=== PATIENT | female | born 1995 ===

== ENCOUNTER → 2017-12-16 19:03 | Outpatient (REF) | payer BC, SELFPAY ==
[2017-12-16 19:23] LABS: Add Manual Diff / Slide Review NO; Basophils Percent Auto 0.5 % (0-2); Eosinophils Percent Auto 0.8 % (2-4); Hematocrit 41.2 % (36-46); Lymphocytes Percent Auto 23.1 % (25-40); Mean Corpuscular HGB Conc 33.9 % (30-36); Mean Corpuscular Hemoglobin 30.1 PG (26-34); Mean Corpuscular Volume 88.8 fL (80-100); Monocytes Percent Auto 7.3 % (3-14); Neutrophils Absolute Auto 4100 /uL (3000-5900); Neutrophils Percent Auto 68.3 % (50-75); Platelet Count 238 X10^3/uL (150-400); Red Blood Cell Count 4.64 X10^6/uL (4.0-5.2)
[2017-12-16 19:33] LABS: Alanine Aminotransferase 38 IU/L (9-52); Albumin 4.3 g/dL (3.5-5.0); Albumin Globulin Ratio 1.7 (1.0-2.8); Alkaline Phosphatase 83 U/L (38-126); Aspartate Aminotransferase 63 IU/L (14-36); Bilirubin Total 0.8 mg/dL (0.2-1.3); Bilirubin Unconjugated 0.5 mg/dL (0.0-1.1); Cholesterol 159 mg/dL (140-199); Globulin 2.6 g/dL (1.7-4.1); HDL Cholesterol 57 mg/dL (40-60); HEMOLYSIS < 15 (0-50); LDL Cholesterol Calculated 88 mg/dL (<100); Total Protein 6.9 g/dL (6.3-8.2); Triglycerides 68 mg/dL (35-150)
[2017-12-16 19:50] LABS: HCG Quantitative /Beta subunit < 2.39 mIU/mL
== END ==
LOC: LAB 19:03
PROVIDERS: Visit Provider Physician Assistant
DX: Z79.899 Other long term (current) drug therapy (principal); L70.0 Acne vulgaris
CPT/HCPCS: 36415; 80061; 80076; 84702; 85025

== ENCOUNTER → 2018-01-05 18:59 | Outpatient (REF) | payer BC, SELFPAY ==
[2018-01-05 19:13] LABS: Pregnancy Test Urine Negative (Negative)
== END ==
LOC: LAB 18:59
PROVIDERS: Visit Provider Physician Assistant
DX: Z79.899 Other long term (current) drug therapy (principal)
CPT/HCPCS: 81025

== ENCOUNTER → 2018-02-02 19:08 | Outpatient (REF) | payer OTHER, SELFPAY ==
[2018-02-02 19:42] LABS: Add Manual Diff / Slide Review NO; Basophils Percent Auto 0.4 % (0-2); Eosinophils Percent Auto 0.1 % (2-4); Hematocrit 43.2 % (36-46); Hemoglobin 14.5 g/dL (12.0-16.0); Lymphocytes Percent Auto 14.9 % (25-40); Mean Corpuscular HGB Conc 33.6 % (30-36); Mean Corpuscular Hemoglobin 29.8 PG (26-34); Mean Corpuscular Volume 88.7 fL (80-100); Monocytes Percent Auto 5.4 % (3-14); Neutrophils Absolute Auto 6200 /uL (3000-5900); Neutrophils Percent Auto 79.2 % (50-75); Platelet Count 267 X10^3/uL (150-400); Red Blood Cell Count 4.87 X10^6/uL (4.0-5.2); White Blood Cell Count 7.9 X10^3/uL (4.5-11.0)
[2018-02-02 19:52] LABS: Alanine Aminotransferase 25 IU/L (9-52); Albumin 4.8 g/dL (3.5-5.0); Albumin Globulin Ratio 1.5 (1.0-2.8); Alkaline Phosphatase 106 U/L (38-126); Aspartate Aminotransferase 33 IU/L (14-36); Bilirubin Total 0.8 mg/dL (0.2-1.3); Bilirubin Unconjugated 0.6 mg/dL (0.0-1.1); Cholesterol 209 mg/dL (140-199); Globulin 3.2 g/dL (1.7-4.1); HDL Cholesterol 65 mg/dL (40-60); HEMOLYSIS < 15 (0-50); LDL Cholesterol Calculated 129 mg/dL (<100); Triglycerides 73 mg/dL (35-150)
[2018-02-02 20:10] LABS: HCG Quantitative /Beta subunit < 2.39 mIU/mL
== END ==
LOC: LAB 19:08
PROVIDERS: Visit Provider Physician Assistant
DX: Z79.899 Other long term (current) drug therapy (principal); L70.0 Acne vulgaris
CPT/HCPCS: 36415; 80061; 80076; 84702; 85025

== ENCOUNTER → 2018-03-24 19:08 | Outpatient (REF) | payer OTHER, SELFPAY ==
[2018-03-24 19:59] LABS: HCG Quantitative /Beta subunit < 2.39 mIU/mL
== END ==
LOC: LAB 19:08
PROVIDERS: Visit Provider Physician Assistant
DX: Z79.899 Other long term (current) drug therapy (principal)
CPT/HCPCS: 36415; 84702

== ENCOUNTER → 2018-06-01 20:10 | Outpatient (REF) | payer OTHER, SELFPAY ==
[2018-06-01 20:24] LABS: Pregnancy Test Urine Negative (Negative)
[2018-06-01 21:21] LABS: Thyroid Stimulating Hormone 0.89 uIU/mL (0.47-4.68)
[2018-06-02 06:58] LABS: Creatine Kinase 100 U/L (30-135)
== END ==
LOC: LAB 20:10
PROVIDERS: Family Medicine; Visit Provider Physician Assistant
DX: Z79.899 Other long term (current) drug therapy (principal); R53.81 Other malaise
CPT/HCPCS: 36415; 81025; 82550; 84443; 86140

== ENCOUNTER → 2018-08-12 19:15 | Outpatient (ROUT) | payer OTHER, SELFPAY ==
[2018-08-12 19:30] LABS: Pregnancy Test Urine Negative (Negative)
== END ==
PROVIDERS: Visit Provider Physician Assistant
DX: Z70.0 Counseling related to sexual attitude (principal)
CPT/HCPCS: 81025